=== PATIENT | female | born 1960 | race Caucasian/White ===

== ENCOUNTER → 2016-05-13 | Day surgery (SDC) | payer OTHER ==
[~2016-05-13] VITALS: Ht 167.6 cm; Wt 57.6 kg
[~2016-05-13] MED LIST: SYNTHROID50 MCG PO
--- NOTE | 2016-05-13 16:10 | Operative Report ---
Operative/Inv Procedure Report Surgery Date: 05/13/16 Name of Procedure: cystocele repair with Restorelle mesh, urethral sling, cystoscopy, rectocele repair with Acell mesh. Pre-Operative Diagnosis: cystocele grade 3, rectocele grade 3, stress incontinence Post-Operative Diagnosis: same Estimated Blood Loss: 50ml to 100ml Surgeon/Area Director: MATHEW ARAUJO MD Anesthesia: laryngeal mask airway Implants: vaginal mesh, permanent and Acell, and urethral sling Complications: none Condition: stable Operative Indication: cystocele grade 3 and rectocele grade 3 and stresss incontinence Operative/Procedure Note Note: This an operative dictation on patient Izabel Domínguez. Patient was identified in the holding area and consented for cystocele repair with mesh urethral sling cystoscopy and rectocele repair with mesh. All the risks benefits and alternatives of the surgery were given and all questions were answered. Patient was taken to the operating room placed on the operating table in supine position. Once timeout was performed general anesthesia was given with LMA and IV antibiotics were infused. Patient was placed in the dorsal lithotomy position. She was prepped and draped in the standard sterile fashion. Gandhi catheter was placed at the beginning of the surgery and the bladder was drained. The Gandhi was placed on the patient's abdomen. [place] retractor was then placed for vaginal vault visualization. The cystocele portion of the surgery was started first. 1% lidocaine with epinephrine was infiltrated into the anterior vaginal wall from the bladder neck to the cervix. An incision was made and the vaginal flaps are created on the patient's right and left side taking care not to injure the bladder. Once the bladder was completely dissected free the retropubic space was entered with blunt and sharp dissection. The sacrospinous ligament was palpated on each side and cleaned. The Capio thin device was then used to place the Prolene sutures at the sacrospinous ligaments on the patient's right and left side. The Capio thin device was then used to place 2 sutures at the level of the bladder neck on the patient's right and left side as well. The Restoril mesh was then opened and used to place through the 4 Prolene sutures that was previously placed. The distal proximal portions were secured with 2-0 Vicryl suture. The mesh was then secured in place over there is Prolene sutures and tied down. This mesh was seen to be in a nice tension- free manner and reduced the cystocele nicely. The area was copiously irrigated bacitracin irrigation. The incision site was closed using running locking 2-0 Vicryl suture. Attention was then turned to the sling portion of the case. 1% lidocaine with epinephrine was infiltrated into the subcutaneous urethral region. An incision was made and the vaginal flaps are created taking care not to injure the urethra. The UltraSling kit was then opened and used to place the sling in the patient's left and right side with the trochars provided. The sling was then tightened and was seen to be in a nice tension-free manner. Area was grossly irrigated with bacitracin irrigation and then closed with running locking 3-0 Vicryl suture. A cystoscopy was then performed. Methylene blue had been given prior to the cystoscopy at the time of the 6 spinous ligament suture placement. The bladder was globally inspected there was no mesh in the bladder or the urethra. The ureteral orifices were easily identified in the normal anatomic position. These were seen to have good ureteral reflux creating color on both sides. The bladder was emptied and the Gandhi was placed back into the bladder. Attention was turned to the rectocele portion of the case. The posterior vagina was infiltrated with 1% lidocaine with epinephrine. The knife was used to make an incision at the posterior fourchette. The Metzenbaum scissors then used to create the posterior vaginal flaps taking care not to injure the rectum. Periodic rectal exams were performed to ensure that the rectum was not injured. Once the rectum seal was entirely dissected free from the vaginal flaps the fascial defect was then closed using interrupted 2-0 Vicryl sutures with a piece of a cell mesh incorporated into the repair. This was seen to nicely reduced the rectocele. There were no injuries to the rectum that were appreciated. There was copiously irrigated with bacitracin irrigation. The incision site was closed using running locking 2-0 Vicryl sutures followed by 3-0 Vicryl running suture for the perineorrhaphy. The sponge and needle count were correct and of the case. Patient tolerated the procedure well. Findings: no mesh in bladder or urethra. Good blue efflux from both ureteral orifices. No bladder injury or rectgal injury. Discharge Disposition: PACU
== END ==
LOC: STS 01:59
DX: N39.3 Stress incontinence (female) (male) (principal); N81.10 Cystocele, unspecified; N81.6 Rectocele; E03.9 Hypothyroidism, unspecified
CPT/HCPCS: C1771; C1781; J0690; J1100; J2250; J2405; J3250